=== PATIENT | female | born 2000 ===

== ENCOUNTER 2021-01-11 08:39 | Emergency (ER) | payer BC ==
[~2021-01-11] VITALS: Ht 165.1 cm; Wt 61.2 kg
[2021-01-11] MEDS ORDERED: INTESTINEX680 M1 PO (10:54)
[2021-01-11] MEDS ORDERED: KETO10TA2 PO (10:54)
[2021-01-11] MEDS ORDERED: CLINDAMYCIN HC300 MG PO (10:54)
[2021-01-11] MEDS ORDERED: PEPCID AC20 MG PO (10:54)
== END 2021-01-11 11:10 | disposition home or self-care (01) ==
LOC: ER 08:39
DX: J02.9 Acute pharyngitis, unspecified (principal)